=== PATIENT | female | born 1980 | race Caucasian/White ===

== ENCOUNTER 2022-06-12 09:31 | Outpatient (CLI) | payer OTHER, SELFPAY ==
--- NOTE | 2022-06-12 10:15 | CRLHL7_ITS ---
For Patients: As a result of the Century Cures Act, medical imaging exams and procedure reports are released immediately into your electronic medical record. You may view this report before your referring provider. If you have questions, please contact your health care provider. BILATERAL SCREENING MAMMOGRAM WITH COMPUTER-AIDED DETECTION TECHNIQUE: CC and MLO views were obtained. These mammographic images have been obtained using full-field digital technique. These mammographic images were interpreted with the benefit of computer-aided detection. COMPARISON FILM: 07/14/19. FINDINGS: There are scattered areas of fibroglandular density IMPRESSION: There is no radiographic evidence for malignancy. ASSESSMENT: BI-RADS Category 1: Negative RECOMMENDATION: Routine screening mammogram in 1 year. A lay language report of this examination will be provided to the patient. Yash Hernandez M.D. Diagnostic Radiologist [email or web address] KARLA/Dictated by: Yash Hernandez MD @ 06/12/2022 12:21:00 PM (Electronically Signed)
== END 2022-06-12 09:32 | disposition home or self-care (01) ==
PROVIDERS: Visit Provider Physician Assistant
DX: Z12.31 Encounter for screening mammogram for malignant neoplasm of breast (principal)
CPT/HCPCS: 77067

== ENCOUNTER 2023-01-18 14:50 | Outpatient (CLI) | payer SELFPAY ==
--- NOTE | 2023-01-18 15:00 | CRLHL7_ITS ---
For Patients: As a result of the Century Cures Act, medical imaging exams and procedure reports are released immediately into your electronic medical record. You may view this report before your referring provider. If you have questions, please contact your health care provider. CLINICAL HISTORY: pelvic and peroneal pain.?endometriosis. Comparison 12/09/2021 TECHNIQUE: 2D nazario scale ultrasound. In addition color Doppler and spectral Doppler analysis was performed of the pelvis using a transabdominal and transvaginal approach. FINDINGS: The uterus measures 8.0 x 3.9 x 4.5 cm. No uterine fibroid. Intrauterine device present within the endometrial canal. The right ovary measures 2.3 x 1.4 x 2.3 cm in size and the left ovary measures 2.7 x 1.5 x 1.8 cm. The ovaries demonstrate normal arterial and venous blood flow on color Doppler and spectral Doppler analysis. There are no suspicious fluid collections within the cul-de-sac. IMPRESSION: Good position of the IUD within the endometrial canal. Normal ovaries. No torsion or excess pelvic free fluid. Dictated by Yash Hernandez MD @ 01/18/2023 3:47:03 PM (Electronically Signed)
== END 2023-01-18 14:51 | disposition home or self-care (01) ==
PROVIDERS: PCP Physician Assistant; Visit Provider Obstetrics & Gynecology
DX: R10.2 Pelvic and perineal pain (principal); N93.9 Abnormal uterine and vaginal bleeding, unspecified
CPT/HCPCS: 76830; 76856; 93976

== ENCOUNTER 2025-04-08 15:42 | Emergency (ER) | payer OTHER, SELFPAY ==
[2025-04-08 15:53] VITALS: BP 123/79; PULSE 104; RESP 16; TEMP 36.9; O2SAT 99; BMI 33.0
--- NOTE | 2025-04-08 16:27 | CRLHL7_ITS ---
For Patients: As a result of the Cures Act, medical imaging exams and procedure reports are released immediately into your electronic medical record. You may view this report before your referring provider. If you have questions, please contact your health care provider. INDICATION: Facial injury. Pain around the nodes and I. COMPARISON: 01/12/2021. TECHNIQUE: Noncontrast CT of the facial bones. FINDINGS: No facial fractures. Specifically, the nasal bones, zygomatic arches, and bony orbits are intact. Normal circulation at the bilateral temporomandibular joints. No significant soft tissue swelling of the face or periorbital soft tissues. Visualized paranasal sinuses and mastoid air cells are clear. Nasal septal deviation to the right measured approximately 3 millimeters from midline. Unerupted maxillary and mandibular molar teeth. Normal orbits bilaterally. IMPRESSION: 1. No facial fractures 2. No significant soft tissue swelling of the face or within the periorbital soft tissues Please note that all CT scans at this facility use dose modulation, iterative reconstruction, and/or weight-based dosing when appropriate to reduce radiation dose to as low as reasonably achievable. Dictated by Eliot Martinez MD @ 04/08/2025 5:24:55 PM (Electronically Signed)
--- NOTE | 2025-04-08 16:43 | ED.GENADULT ---
HPI - General Adult General Chief complaint: Headache/Migraine Stated complaint: injured nose Time Seen by Provider: 04/08/25 16:14 History of Present Illness HPI narrative: This 44-year-old female comes in with persistent pain in her nose and the left side of the bridge of her nose in particular. She states that she fell in the night about 8 or 9 days ago and hit her nose on a door that normally was not in the position that it was. She did not have loss of consciousness. She had an immediate gush of blood from her nose. Since then she has had persistent pain in her nose and states that she has episodes where she wakes up at night with the pain she also has difficulty wearing any kind of I apparel. Her nose does seem to be tilted to the left. She does describe some changes in her breathing since then also. Related Data Previous Rx's ?Medication ?Instructions ?Recorded ketorolac 10 mg tablet 10 mg PO TID 5 days #15 tabs 04/08/25 Allergies Allergy/AdvReac Type Severity Reaction Status Date / Time No Known Drug Allergies Allergy Verified 04/08/25 15:52 Review of Systems Status of ROS: Reports: 10 or more systems reviewed and unremarkable except as noted in History and below Narrative: Constitutional: No fevers, no weight gain or loss. Eyes: No discharge. No vision changes. HENT: No congestion, no sore throat, no ear pain. Nasal pain as described above. Cardiovascular: No chest pain, no palpitations. Respiratory: No shortness of breath, no wheezes, no cough. Gastrointestinal: No abdominal pain, no vomiting, no diarrhea. Genitourinary: No dysuria, no hematuria. Musculoskeletal: Normal range of motion. Skin: No rashes, no pruritis. Neurological: No dizziness, weakness, sensory change, speech change. Endo/Heme/Allergies: No bruising or bleeding. No polydipsia. Pysch: no suicidality, no anxiety, no insomnia. All other systems reviewed and are negative. [facility] Medical History (Updated 04/08/25 @ 17:20 by Shashank Kay MD) Depression ?F32.A - Depression, unspecified (ICD-10) History of vaginal delivery Surgical History (Updated 01/18/23 @ 12:52 by Radha Laureano) History of cosmetic surgery ?Z98.890 - Other specified postprocedural states (ICD-10) Family History (Updated 01/18/23 @ 12:58 by Radha Laureano) Mother Diabetes COPD (chronic obstructive pulmonary disease) Sister Diabetes Mother Alcohol dependence Victor Manuel's granulomatosis Father Alcohol dependence Social History What is your current living situation?: I presently have a place to live Problems where you live: no known problems In the past 12 months, utilities in danger of being shut off: no In past 12 months, lack of transportation kept you from medical appts, meetings, work, or getting things needed for daily living: no In the past 12 mos, have been you worried that your food would run out before you had money to buy more?: never true In the past 12 mos, the food you bought just didn't last and you didn't have money to buy more?: never true Within the last year, have you been humiliated or emotionally abused in other ways by your partner or ex-partner: no Within the last year, have you been afraid of your partner or ex-partner: no Within the last year, have you been raped or forced to have any kind of sexual activity by your partner or ex-partner: no Within the last year, have you been kicked, hit, slapped, or otherwise physically hurt by your partner or ex-partner: no HARK total score: 0 Exam Narrative: Exam Narrative: Constitutional: Well-developed, well-nourished, no acute distress. HEENT: Her nose appears to be tipped a bit to the left of midline. No bruising or swelling. Neck: Normal range of motion. Nontender. Supple. Heart: Intact distal pulses. Lungs: No chest discomfort. No wheezes, rhonchi, or rales. Abdomen: Nontender. Back: Normal range of motion. Extremities: Normal range of motion. No injury. Skin: Intact. No rash. Warm. No erythema or pallor. Neurologic: No altered sensation. No weakness. Alert and oriented. Psychiatric: No suicidality. No anxiety or depression. No insomnia. Nursing notes and vitals signs are reviewed. Const: Vital Signs, click to edit/add: Vital Signs - 24 hr 04/08/25 15:53 Temperature 98.4 F Pulse Rate [Pulse Oximeter] 104 H Respiratory Rate 16 Blood Pressure [Ri ght Upper Arm] 123/79 Pulse Oximetry 99 Course Vital Signs Vital signs: Initial Vital Signs Temperature 98.4 F 04/08/25 15:53 Temperature Source Temporal Artery Scan 04/08/25 15:53 Pulse Rate 104 H 04/08/25 15:53 Respiratory Rate 16 04/08/25 15:53 Blood Pressure 123/79 04/08/25 15:53 Blood Pressure Mean 93 04/08/25 15:53 Blood Pressure Position Sitting 04/08/25 15:53 Pulse Oximetry 99 04/08/25 15:53 Vital Signs Temperature 98.4 F 04/08/25 15:53 Pulse Rate 104 H 04/08/25 15:53 Respiratory Rate 16 04/08/25 15:53 Blood Pressure 123/79 04/08/25 15:53 Pulse Oximetry 99 04/08/25 15:53 Temperature 98.4 F 04/08/25 15:53 Pulse Rate 104 H 04/08/25 15:53 Respiratory Rate 16 04/08/25 15:53 Blood Pressure 123/79 04/08/25 15:53 Pulse Oximetry 99 04/08/25 15:53 Medical Decision Making MDM Narrative Medical decision making narrative: This patient comes in with an injury to her nose as described above. I did obtain a CT scan of the facial bones to further evaluate this. It happened that the ear nose and throat physician happen to come to the emergency department for another reason and was able to look at these images and made arrangements for the patient to see him at clinic at noon tomorrow in the [place] facility. I do not see an obvious fracture but she is having symptoms and could benefit from this visit. Radiology report is pending. I did provide a prescription for Toradol. Discharge Plan Discharge Clinical Impression: Fracture of nasal bone Patient Disposition: Home, Self-Care Condition: Stable Additional Instructions: Follow-up with ear nose and throat clinic tomorrow at noon in the [facility]. Return if worsening. Prescriptions: New ketorolac 10 mg tablet 10 mg PO TID 5 Days Qty: 15 0RF Follow Up/Referrals: Provider,Not a Local [Primary Care Provider, Family Practice] Stand Alone Forms: [employer] Info Instructions
== END 2025-04-08 17:37 | disposition home or self-care (01) ==
PROVIDERS: Emergency Provider Emergency Medicine Emergency Medical Services
DX: S02.2XXA Fracture of nasal bones, initial encounter for closed fracture (principal); W18.00XA Striking against unspecified object with subsequent fall, initial encounter
CPT/HCPCS: 70486; 99283; 99284